=== PATIENT | male | born 1985 | race Hispanic/Latino ===

== ENCOUNTER 2023-12-23 23:14 | Inpatient (IN) | payer SELFPAY ==
[2023-12-24 01:01] VITALS: BMI 26.7
[2023-12-24] MEDS ORDERED: Acetaminophen 650 MG Suppository PR PRN (01:12)
[2023-12-24] MEDS ORDERED: Ondansetron ODT 4 MG TAB PO PRN (01:12)
[2023-12-24 01:44] LABS: Hemoglobin A1c 11.8 % (4.0-6.0)
[2023-12-24 01:52] LABS: Chloride 108 mmol/L (98-107); Potassium 4.3 mmol/L (3.5-5.1); Sodium 137 mmol/L (136-145)
[2023-12-24 02:07] LABS: BUN (Urea Nitrogen) 15 mg/dL (8.9-20.6); Calc. Creatinine Clearance 158 mL/min (70-130); Calcium 9.4 mg/dL (7.8-10.44); Carbon Dioxide 17 mmol/L (22-29); Estimated GFR 116; Glucose 326 mg/dL (70-105)
[2023-12-24] MEDS: Ondansetron PF 4 MG/2 ML Vial IVP PRN (02:07)
[2023-12-24] MEDS: Lactated Ringer's 1,000 ML IV SCH (02:07)
[2023-12-24] MEDS ORDERED: Pantoprazole DR 40 MG TAB PO SCH (02:15)
[2023-12-24 02:16] LABS: Anion Gap 16 mmol/L (10-20)
[2023-12-24] MEDS: Lidocaine 2% Viscous Solution 10 ML, Aluminum & Magnesium Hydroxide 30 ML SSW SCH (02:58)
[2023-12-24] MEDS: Insulin Regular, Human 100 UNIT/ML 10 ML VIAL IVP SCH (03:17)
[2023-12-24] MEDS: Pantoprazole 40 MG VIAL IVP SCH ×3 (03:18→23:58)
[2023-12-24] MEDS: fentaNYL 50 mcg/mL 1 mL Vial SLOW IVP SCH (05:07)
[2023-12-24] MEDS: traMADol HCl 50 MG TAB PO SCH (05:24)
[2023-12-24] MEDS ORDERED: Dextrose 50% Abboject 50 ML SYRINGE SLOW IVP PRN (06:42)
[2023-12-24] MEDS ORDERED: Glucagon 1 MG/ML KIT IM PRN (06:42)
[2023-12-24] MEDS ORDERED: Dextrose 5% in Water 1,000 ML IV PRN (06:42)
[2023-12-24] MEDS: metFORMIN 500 MG TAB PO SCH (09:42)
[2023-12-24] MEDS: Famotidine 20 MG TAB PO SCH (09:42)
[2023-12-24] MEDS: Insulin Glargine 30 UNITS/0.3 ML VIAL SC SCH (09:43)
[2023-12-24] MEDS: Famotidine/PF 20 mg/2ml Vial SLOW IVP SCH (09:43)
[2023-12-24 10:40] LABS: #Basophils Less than 0.03 10x3/uL (0.0-0.2); %Basophils 0.2 % (0.0-1.0); %Eosinophils 1.7 % (0.0-10.0); %Lymphocytes 22.6 % (21.0-51.0); %Monocytes 9.9 % (0.0-10.0); Hematocrit 34.2 % (42.0-52.0); Hemoglobin 11.3 g/dL (14.0-18.0); Mean Corpuscular Hemoglobin 24.1 pg (27.0-31.0); Mean Corpuscular Volume 72.9 fL (78.0-98.0); Mean Platelet Volume 10.5 fL (7.4-10.4); Platelet Count 206 10x3/uL (130-400); RBC Distribution Width 14.9 % (11.5-14.5); Red Blood Cell (RBC) Count 4.69 mill/uL (4.70-6.10)
[2023-12-24 10:51] LABS: INR-International Normal Ratio 0.9; Prothrombin Time 12.5 sec (12.0-14.7)
[2023-12-24 10:52] LABS: PTT 24.7 sec (22.9-36.1)
[2023-12-24 11:01] LABS: ALT (SGPT) 22 U/L (8-55); AST (SGOT) 23 U/L (5-34); Albumin 3.6 g/dL (3.5-5.0); Alkaline Phosphatase 85 U/L (40-110); Anion Gap 14 mmol/L (10-20); BUN (Urea Nitrogen) 12 mg/dL (8.9-20.6); Bilirubin, Total 0.4 mg/dL (0.2-1.2); Calc. Creatinine Clearance 168 mL/min (70-130); Calcium 9.5 mg/dL (7.8-10.44); Carbon Dioxide 21 mmol/L (22-29); Chloride 106 mmol/L (98-107); Estimated GFR 118; Globulin 3.2 g/dL (2.4-3.5); Glucose 323 mg/dL (70-105); Potassium 4.4 mmol/L (3.5-5.1); Protein, Total 6.8 g/dL (6.0-8.3); Sodium 137 mmol/L (136-145)
[2023-12-24] MEDS: Insulin Lispro 100 UNIT/ML 10 ML VIAL SC PRN ×2 (12:05→21:34)
[2023-12-24] MEDS: Acetaminophen 325 MG TAB PO PRN (12:05)
[2023-12-24 14:20] LABS: Anion Gap 13 mmol/L (10-20); BUN (Urea Nitrogen) 11 mg/dL (8.9-20.6); Calc. Creatinine Clearance 154 mL/min (70-130); Calcium 9.2 mg/dL (7.8-10.44); Carbon Dioxide 21 mmol/L (22-29); Chloride 105 mmol/L (98-107); Estimated GFR 115; Glucose 334 mg/dL (70-105); Potassium 4.4 mmol/L (3.5-5.1); Sodium 135 mmol/L (136-145)
[2023-12-24] MEDS: Acetaminophen 500 MG TAB PO SCH (18:28)
[2023-12-25 01:23] LABS: Hematocrit 36.8 % (42.0-52.0); Platelet Count 164 10x3/uL (130-400)
[2023-12-25] MEDS ORDERED: Promethazine HCl 25 MG/ML VIAL IM PRN (01:45)
[2023-12-25] MEDS: Promethazine HCl 25 MG/ML VIAL IM SCH (02:01)
[2023-12-25] MEDS ORDERED: Lactated Ringer's 1,000 ML IV SCH (09:00)
[2023-12-25] MEDS ORDERED: Insulin Glargine 30 UNITS/0.3 ML VIAL SC SCH (09:00)
[2023-12-25] MEDS ORDERED: Lidocaine 1% MPF 2 ML VIAL ONE (09:01)
[2023-12-25] MEDS ORDERED: Midazolam HCl 2 mg/2 ml Vial ONE ×2 (09:01→09:21)
[2023-12-25] MEDS ORDERED: PROPOFOL 20 ML ONE (09:21)
[2023-12-25] MEDS ORDERED: fentaNYL 50 mcg/mL 1 mL Vial ONE ×3 (09:37→10:17)
[2023-12-25 09:41] LABS: Anion Gap 16 mmol/L (10-20); BUN (Urea Nitrogen) 10 mg/dL (8.9-20.6); Calc. Creatinine Clearance 162 mL/min (70-130); Calcium 9.4 mg/dL (7.8-10.44); Carbon Dioxide 21 mmol/L (22-29); Chloride 102 mmol/L (98-107); Estimated GFR 117; Glucose 281 mg/dL (70-105); Potassium 4.1 mmol/L (3.5-5.1); Sodium 135 mmol/L (136-145)
[2023-12-25] MEDS ORDERED: PHENYLEPHRINE-NS 100 MCG/ML 10 ML SYRINGE ONE (09:48)
[2023-12-25 10:00] LABS: #Basophils Less than 0.03 10x3/uL (0.0-0.2); %Basophils 0.5 % (0.0-1.0); %Eosinophils 2.4 % (0.0-10.0); %Lymphocytes 25.7 % (21.0-51.0); %Monocytes 8.5 % (0.0-10.0); %Neutrophils 61.7 % (42.0-75.0); Hematocrit 37.1 % (42.0-52.0); Hemoglobin 12.4 g/dL (14.0-18.0); Mean Corpuscular HGB CONC 33.4 g/dL (32.0-36.0); Mean Corpuscular Hemoglobin 23.9 pg (27.0-31.0); Mean Corpuscular Volume 71.6 fL (78.0-98.0); Platelet Count 172 10x3/uL (130-400); RBC Distribution Width 14.6 % (11.5-14.5); Red Blood Cell (RBC) Count 5.18 mill/uL (4.70-6.10)
[2023-12-25] MEDS ORDERED: Iopamidol 370 76% 100 ML VIAL ONE (10:35)
[2023-12-25 10:50] VITALS: TEMP 98
[2023-12-25] MEDS ORDERED: Dextrose 50% Abboject 50 ML SYRINGE SLOW IVP PRN (12:00)
[2023-12-25] MEDS ORDERED: Glucagon 1 MG/ML KIT IM PRN (12:00)
[2023-12-25] MEDS ORDERED: Dextrose 5% in Water 1,000 ML IV PRN (12:00)
[2023-12-25] MEDS: metFORMIN 500 MG TAB PO SCH (12:15)
[2023-12-25] MEDS: Pantoprazole 40 MG VIAL IVP SCH (12:15)
[2023-12-25] MEDS: Insulin Glargine 30 UNITS/0.3 ML VIAL SC SCH (12:15)
[2023-12-25] MEDS ORDERED: HumaLOG 300 UNITS/3 ML VIAL SC PRN ×2 (12:58)
[2023-12-25] MEDS ORDERED: Insulin Lispro 100 UNIT/ML 10 ML VIAL SC PRN ×2 (13:30)
[2023-12-25] MEDS ORDERED: Acetaminophen 500 MG TAB PO PRN (13:34)
[2023-12-25 15:10] VITALS: BP 124/62
[2023-12-25] MEDS: oxyCODONE 5 MG TAB PO PRN (15:11)
[2023-12-25] MEDS ORDERED: metFORMIN 500 MG TAB PO SCH (17:00)
[2023-12-25] MEDS ORDERED: Pantoprazole 40 MG VIAL IVP SCH (21:00)
[2023-12-25] MEDS ORDERED: Famotidine 20 MG TAB PO SCH (21:00)
[2023-12-26] MEDS ORDERED: Insulin Glargine 30 UNITS/0.3 ML VIAL SC SCH ×2 (09:00)
[2023-12-26] MEDS ORDERED: Pantoprazole DR 40 MG TAB PO SCH (09:00)
== END 2023-12-25 18:46 | disposition left against medical advice (07) | DRG 638 ==
LOC: 2NO 12-24 00:28 → OBSVTOIN 12-24 09:56
PROVIDERS: ADMIT Student in an Organized Health Care Education/Training Program; ATTEND Student in an Organized Health Care Education/Training Program
PROC: 0DJ08ZZ Inspection of Upper Intestinal Tract, Via Natural or Artificial Opening Endoscopic (ICD-10-PCS; principal; 2023-12-25)
DX: E11.00 Type 2 diabetes mellitus with hyperosmolarity without nonketotic hyperglycemic-hyperosmolar coma (NKHHC) (principal); K92.0 Hematemesis; Z79.4 Long term (current) use of insulin; Z79.899 Other long term (current) drug therapy; K74.60 Unspecified cirrhosis of liver; F10.10 Alcohol abuse, uncomplicated
CPT/HCPCS: 36415; 36416; 74177; 80048; 83036; 83690; 85025; 85610; 85730; 96374; 96375; 96376; G0378; J1815; J2250; J2405; J2470; J2704; J3010; J7120; Q9967